=== PATIENT | male | born 1950 | race Caucasian/White ===

== ENCOUNTER 2020-09-19 13:19 | Emergency (ER) | payer MEDICARE, OTHER ==
[~2020-09-19] VITALS: Ht 175.3 cm; Wt 81.7 kg
[2020-09-19 14:38] LABS: BASOPHILS ABSOLUTE AUTO 0.02 K/mm3 (0.00-0.23); BASOPHILS PERCENT AUTO 0 % (0-2); EOSINOPHILS ABSOLUTE AUTO 0.14 K/mm3 (0.00-0.68); EOSINOPHILS PERCENT AUTO 2 % (0-6); Hemoglobin 13.6 g/dL (13.5-17.5); IMMATURE GRAN ABSOLUTE AUTO 0.05 K/mm3 (0.00-0.10); IMMATURE GRAN PERCENT AUTO 1 % (0-1); LYMPHOCYTES ABSOLUTE AUTO 0.63 K/mm3 (0.84-5.20); LYMPHOCYTES PERCENT AUTO 7 % (21-46); MONOCYTES ABSOLUTE AUTO 0.58 K/mm3 (0.16-1.47); MONOCYTES PERCENT AUTO 7 % (4-13); Mean Corpuscular HGB 29.8 pg (26.0-34.0); Mean Corpuscular HGB Conc 31.6 g/dL (31.5-36.5); Mean Corpuscular Volume 94 fL (80-100); Mean Platelet Volume 9.4 fL (9.1-12.4); NEUTROPHILS ABSOLUTE AUTO 7.26 K/mm3 (1.96-9.15); NEUTROPHILS PERCENT AUTO 84 % (41-73); Platelet Count 220 K/mm3 (150-400); RDW Coefficient Variation 13.6 % (11.7-14.2); RDW Standard Deviation 47.2 fL (35.1-46.3); Red Blood Cell Count 4.56 M/mm3 (4.30-5.90); White Blood Cell Count 8.68 K/mm3 (4.00-11.30)
[2020-09-19 14:56] LABS: Alanine Aminotransfer (ALT/SGP 15 U/L (12-78); Albumin, Blood 3.2 g/dL (3.4-5.0); Alk Phos 113 U/L (50-136); Anion Gap 2 mmol/L (6-16); Aspartate Aminotrans (AST/SGOT 10 U/L (12-37); Bilirubin, Total 0.5 mg/dL (0.1-1.0); Blood Urea Nitrogen 15 mg/dL (8-24); Bun/Creatinine Ratio 19.5 (12.0-20.0); CO2, Blood 32 mmol/L (21-32); Chloride, Blood 100 mmol/L (98-108); Creatinine, Blood 0.77 mg/dL (0.60-1.20); Globulin, Blood 3.3 g/dL (2.2-4.0); Glomerular Filtration Rate >60 (60-); Glucose, Blood 118 mg/dL (70-99); Potassium, Blood 4.3 mmol/L (3.5-5.5); Sodium, Blood 134 mmol/L (136-145); Total Protein, Blood 6.5 g/dL (6.4-8.2); Troponin I <0.015 ng/mL (0.000-0.040)
[2020-09-19 15:25] LABS: Source, Urine Catheter
[2020-09-19 15:28] LABS: Appearance, Urine Clear (Clear); Bilirubin, Urine Neg (Neg); Blood, Urine Neg (Neg); Color, Urine Yellow (P-Yellow); Glucose Qualitative, Urine Neg (Neg); Ketones, Urine 2+ (Neg); Leukocyte Esterase, Urine 1+ (Neg); Nitrite, Urine Neg (Neg); Protein, Urine Neg (Neg); Specific Gravity, Urine 1.015 (1.003-1.022); Urobilinogen, Urine 2+ (Normal); pH, Urine 6.5 (5.0-8.0)
[2020-09-19 15:35] LABS: Red Blood Cells, Urine 0-2 /hpf (0-2)
[2020-09-19 15:36] LABS: Bacteria Few /hpf; Squamous Epithelial Cells Rare /hpf (Few)
[2020-09-19] MEDS ORDERED: ASPI81CH PO (15:41)
[2020-09-19] MEDS ORDERED: ALBU2.5V5 INH (15:41)
[2020-09-19] MEDS ORDERED: BUPR100ER PO (15:42)
[2020-09-19] MEDS ORDERED: ATOR20 PO (15:42)
[2020-09-19] MEDS ORDERED: CARV3.125 PO (15:44)
[2020-09-19] MEDS ORDERED: CARBIDOPA-LEVO1 EA20 PO (15:44)
[2020-09-19] MEDS ORDERED: Flonase 0.05% N16 GM (15:44)
[2020-09-19] MEDS ORDERED: LITHOBID300 MG PO (15:45)
[2020-09-19] MEDS ORDERED: LEVSOD112 PO (15:45)
[2020-09-19] MEDS ORDERED: OMEP20ER PO (15:46)
[2020-09-19] MEDS ORDERED: MIRALAX17 GM PO (15:46)
[2020-09-19] MEDS ORDERED: SENN187 PO (15:47)
[2020-09-19] MEDS ORDERED: TRAZ100 PO (15:47)
[2020-09-19] MEDS ORDERED: ERGO400 PO (15:48)
[2020-09-19] MEDS ORDERED: Aspirin EC81 MG PO (17:35)
== END 2020-09-19 17:54 | disposition home or self-care (01) ==
LOC: ER 13:19
PROVIDERS: Emergency Medicine
DX: G45.9 Transient cerebral ischemic attack, unspecified (principal); F32.9 Major depressive disorder, single episode, unspecified; Z79.82 Long term (current) use of aspirin; Z79.899 Other long term (current) drug therapy
CPT/HCPCS: 70450; 80053; 81001; 84484; 85025; 87086; 93005; 93010; 99285-25

== ENCOUNTER 2020-09-28 19:53 | Observation (INO) | payer MEDICARE, OTHER ==
[~2020-09-28] VITALS: Ht 175.3 cm; Wt 86.0 kg
[~2020-09-28 19:53] MED LIST: ALBU2.5V5 INH; ASPI81CH PO; ATOR20 PO; Aspirin EC81 MG PO; BUPR100ER PO; CARBIDOPA-LEVO1 EA20 PO; CARV3.125 PO; ERGO400 PO; Flonase 0.05% N16 GM; LEVSOD112 PO; LITHOBID300 MG PO; MIRALAX17 GM PO; OMEP20ER PO; SENN187 PO; TRAZ100 PO
[2020-09-28] MEDS ORDERED: TAMS.4ER PO (20:24)
[2020-09-28] MEDS ORDERED: Prozac20 MG PO (20:24)
[2020-09-28 22:31] LABS: BASOPHILS ABSOLUTE AUTO 0.03 K/mm3 (0.00-0.23); BASOPHILS PERCENT AUTO 0 % (0-2); EOSINOPHILS ABSOLUTE AUTO 0.12 K/mm3 (0.00-0.68); EOSINOPHILS PERCENT AUTO 2 % (0-6); Hematocrit 40.3 % (37.0-53.0); Hemoglobin 12.6 g/dL (13.5-17.5); IMMATURE GRAN ABSOLUTE AUTO 0.05 K/mm3 (0.00-0.10); IMMATURE GRAN PERCENT AUTO 1 % (0-1); LYMPHOCYTES ABSOLUTE AUTO 0.91 K/mm3 (0.84-5.20); LYMPHOCYTES PERCENT AUTO 11 % (21-46); MONOCYTES ABSOLUTE AUTO 0.56 K/mm3 (0.16-1.47); MONOCYTES PERCENT AUTO 7 % (4-13); Mean Corpuscular HGB 29.7 pg (26.0-34.0); Mean Corpuscular HGB Conc 31.3 g/dL (31.5-36.5); Mean Corpuscular Volume 95 fL (80-100); Mean Platelet Volume 9.7 fL (9.1-12.4); NEUTROPHILS ABSOLUTE AUTO 6.55 K/mm3 (1.96-9.15); NEUTROPHILS PERCENT AUTO 80 % (41-73); Platelet Count 211 K/mm3 (150-400); RDW Coefficient Variation 13.5 % (11.7-14.2); RDW Standard Deviation 47.2 fL (35.1-46.3); Red Blood Cell Count 4.24 M/mm3 (4.30-5.90); White Blood Cell Count 8.22 K/mm3 (4.00-11.30)
[2020-09-28 22:49] LABS: Alanine Aminotransfer (ALT/SGP 7 U/L (12-78); Albumin/Globulin Ratio 0.9 (0.8-1.8); Alk Phos 105 U/L (50-136); Anion Gap 2 mmol/L (6-16); Aspartate Aminotrans (AST/SGOT 11 U/L (12-37); Bilirubin, Total 0.5 mg/dL (0.1-1.0); Blood Urea Nitrogen 14 mg/dL (8-24); Bun/Creatinine Ratio 17.7 (12.0-20.0); CO2, Blood 32 mmol/L (21-32); Calcium, Blood 8.8 mg/dL (8.5-10.1); Chloride, Blood 100 mmol/L (98-108); Creatinine, Blood 0.79 mg/dL (0.60-1.20); Ethanol (Alcohol), Blood, Med <3 mg/dL; Globulin, Blood 3.2 g/dL (2.2-4.0); Glomerular Filtration Rate >60 (60-); Glucose, Blood 94 mg/dL (70-99); Potassium, Blood 4.2 mmol/L (3.5-5.5); Salicylate <1.7 mg/dL (2.8-20.0); Sodium, Blood 134 mmol/L (136-145); Total Protein, Blood 6.2 g/dL (6.4-8.2)
[2020-09-28 22:51] LABS: Acetaminophen, Random <2.0 ug/mL (10.0-30.0)
[2020-09-29 02:23] LABS: Source, Urine Clean Catch
[2020-09-29 02:26] LABS: Bilirubin, Urine Neg (Neg); Blood, Urine Neg (Neg); Glucose Qualitative, Urine Neg (Neg); Ketones, Urine Neg (Neg); Leukocyte Esterase, Urine Neg (Neg); Nitrite, Urine Neg (Neg); Protein, Urine Neg (Neg); Urobilinogen, Urine NORM (Normal)
[2020-09-29 02:35] LABS: Appearance, Urine Clear (Clear); Color, Urine Yellow (P-Yellow)
[2020-09-29 03:00] LABS: U Amphetamine Screen Not Detected; U Barbituate Screen Not Detected; U Benzodiazapine Screen Not Detected; U Buprenorphine Screen Not Detected; U Cannabinoids Screen Not Detected; U Cocaine Screen Not Detected; U Methadone Screen Not Detected; U Methamphetamine Screen Not Detected; U Opiates Screen Not Detected; U Oxycodone Screen Not Detected; U Phencyclidine Screen Not Detected; U Propoxyphene Screen Not Detected
--- NOTE | 2020-09-29 04:00 | NUR ---
RECEIVED REPORT FROM [facility] RN. PT TRANSPORTED TO MEDICAL FLOOR VIA GURNEY, TRANSFERRED TO BED WITH ASSIST OF 1, TOLERATED WELL. VS TAKEN, WNL. NO OTHER ACUTE NEEDS ASSESSED AT THIS TIME. CALL LIGHT, POSSESSIONS IN REACH, BED IN LOW POSITION WITH ALARMS ON.
--- NOTE | 2020-09-29 04:40 | NUR ---
HOSPITALIST NOTIFIED OF PT'S CHANGE TO LOW SI RISK. ORDERS RECEIVED TO CONTINUE MODERATE SI PRECAUTIONS.
--- NOTE | 2020-09-29 06:06 | NUR ---
SHIFT SUMMARY PT ASLEEP, IN NAD. VS REVIEWED,WNL. NO ACUTE CHANGES NOTED SINCE ARRIVAL TO MEDICAL FLOOR, HAS BEEN PLEASANT AND COOPERATIVE WITH STAFF. CAMERA MONITORING VERIFIED WITH DEBRA VENEGAS IN REMOTE MONITORING. PT DENIES NEEDS AT THIS TIME. ENVIRONMENT FREE FROM HARMFUL OBJECTS. WILL CONTINUE TO PROVIDE CARE UNTIL REPORT GIVEN TO ONCOMING RN.
[2020-09-29 11:17] LABS: Lithium 0.91 mmol/L (0.60-1.20)
[2020-09-29] MEDS ORDERED: CARBIDOPA-LEVO1 EA20 PO (11:58)
[2020-09-29] MEDS ORDERED: Prozac20 MG PO (13:33)
[2020-09-29] MEDS ORDERED: VITAMIN D325 MC3 PO (13:35)
[2020-09-29] MEDS ORDERED: PROBIOTIC1 EA13 PO (13:36)
[2020-09-29] MEDS ORDERED: ALBUTEROL SULFATE INH (13:44)
--- NOTE | 2020-09-29 17:26 | NUR ---
pt transfered from 346 to 327, moved belongings to [facility] in along with phone and marketing rotation associate onto his bedside cabnet, called enrique for consult, he stated he would be in on Thursday and to send a face sheet down to the er, acc said she would print out new facesheets and labels and send a copy to the er, pt was quite excited when he could not find his phone marketing rotation associate but calmed back down when it was found in his belongings, will continue to monitor and treat until share bsr with noc nurse and pt
--- NOTE | 2020-09-29 17:35 | NUR ---
PT TRANSFERED TO ROOM 327. PT HAS BEEN SLEEPING A LOT TODAY. PT HAS BEEN QUIET AND COOPERATIVE. PT IS GOOD ABOUT HAVING SOMEONE IN ROOM TO USE RESTROOM. SI WAS DC'D BY DR ABREU. REPORT WAS GIVEN TO PORTIA NAVA. PT TAKEN OVER IN BED AND PERSONAL BELONINGS TRANSFERED TO NEW ROOM. PT SETTLED IN AND CALL LIGHT WITHIN REACH WITH BED ALARM SET.
--- NOTE | 2020-09-29 18:26 | NUR ---
a+o, when first moved over stated he had no suicide ideation but when questioned later he stated he might have thought about it some, call light in reach, able to stand but erika, no IV, 2L via nc, will continue to monitor and treat until share bsr with noc tegan rn and pt
--- NOTE | 2020-09-30 04:02 | NUR ---
SHIFT SUMMARY ALERT, ABLE TO MAKE NEEDS KNOWN. COOPERATIVE WITH CARE. CALLS AND ANSWERS QUESTIONS APPROPRIATELY. NO C/O PAIN/DISCOMFORT. 1P SBA TO BATHROOM. APPEARED TO REST MUCH OF THE NIGHT. REMAINS ON 2L VIA WITH CPAP @ HS WITH 2L BLEED. CONT BIOX REMAINED IN PLACE. NO ACUTE CHANGES NOTED OVERNIGHT. BED IN LOWEST POSITION. CALL LIGHT AND BELONGINGS WITHIN REACH. CONTINUE WITH CURRENT PLAN OF CARE. REPORT TO ONCOMING RN.
--- NOTE | 2020-09-30 10:42 | NUR ---
CALL BACK TO [facility], SPOKE TO MYRNA ([facility] STAFF), SHE REPORTED THAT PT IS NOT BE DISCHARGED BEFORE [facility] ADMIN IS ABLE TO REEVALUATE PATIENT ON THURSDAY. NOTIFIED DR. ROCHA VIA PHONE CALL. NO FURTHER ORDERS NOTED. CHARGE NURSE CURRY ALSO NOTIFIED OF THE ABOVE.
--- NOTE | 2020-09-30 16:27 | NUR ---
SHIFT SUMMARY PT A&OX3, ABLE TO MAKE NEEDS KNOWN. PLEASANT AND COOPERATIVE TO CARE. NO C/O PAIN THIS SHIFT. DENIES CP / SOB. PT MEDICATED FOR NAUSEA AND INDIGESTION PER EMAR, PT REPORTED TX HAS BEEN EFFECTIVE. PT ON 2LPM O2 VIA NC, ON CONT BIOX SATS >92%. PT DENIES ANY SUICIDAL IDEATIONS THIS SHIFT, DENIES FEELINGS OF ANXIETY OR DEPRESSION. PT CALM AND COMFORTABLE IN ROOM T/O SHIFT. PT REQUIRES 1P ASSIST WHEN AMBULATING TO BATHROOM D/T SHUFFLING GAIT, WEAKNESS, AND SOB W/ EXERTION. BED AT LOWEST POSITION, W/ ALARM ON, CALL LIGHT WITHIN REACH.
--- NOTE | 2020-10-01 03:52 | NUR ---
SHIFT SUMMARY A/O, ABLE TO MAKE NEEDS KNOWN. COOPERATIVE WITH CARE. CALLS AND ANSWERS QUESTIONS APPROPRIATELY. NO C/O PAIN/DISCOMFORT. APPEARED TO REST MUCH OF THE NIGHT AND UTILIZED CPAP @ HS /c 2L O2 BLEED. NO ACUTE CHANGES NOTED OVERNIGHT. BED REMAINED IN LOWEST POSITION. CALL LIGHT AND BELONGINGS WITHIN REACH. CONTINUE WITH CURRENT PLAN OF CARE. REPORT TO ONCOMING RN.
[2020-10-01 04:53] LABS: Hematocrit 39.2 % (37.0-53.0); Mean Corpuscular HGB 29.6 pg (26.0-34.0); Mean Corpuscular HGB Conc 30.6 g/dL (31.5-36.5); Mean Corpuscular Volume 97 fL (80-100); Mean Platelet Volume 9.6 fL (9.1-12.4); Platelet Count 185 K/mm3 (150-400); RDW Coefficient Variation 13.5 % (11.7-14.2); RDW Standard Deviation 48.4 fL (35.1-46.3); Red Blood Cell Count 4.06 M/mm3 (4.30-5.90); White Blood Cell Count 7.61 K/mm3 (4.00-11.30)
[2020-10-01 05:24] LABS: Anion Gap -1 mmol/L (6-16); Blood Urea Nitrogen 17 mg/dL (8-24); Bun/Creatinine Ratio 21.1 (12.0-20.0); CO2, Blood 34 mmol/L (21-32); Calcium, Blood 8.5 mg/dL (8.5-10.1); Chloride, Blood 102 mmol/L (98-108); Creatinine, Blood 0.81 mg/dL (0.60-1.20); Glomerular Filtration Rate >60 (60-); Glucose, Blood 99 mg/dL (70-99); Magnesium, Blood 2.2 mg/dL (1.6-2.4); Potassium, Blood 4.2 mmol/L (3.5-5.5); Sodium, Blood 135 mmol/L (136-145)
--- NOTE | 2020-10-01 16:55 | NUR ---
SHIFT SUMMARY PT A&OX3, ABLE TO MAKE NEEDS KNOWN, PLEASANT AND COOPERATIVE TO CARE. NO C/O PAIN OR ANY DISCOMFORT. NO ACUTE CHANGES NOTED TO PT THIS SHIFT. DENIES SUICIDAL IDEATIONS, DENIES FEELINGS OF INCREASE ANXIETY OR DEPRESSION. CALM AND COMFORTABLE IN ROOM T/O SHIFT. PT REQUIRES 1P SBA TO BATHROOM. RESTING TREMORS NOTED TO BUE, SHUFFLING GAIT NOTED WHEN AMBULATING. BED AT LOWEST POSITION. CALL LIGHT WITHIN REACH.
--- NOTE | 2020-10-02 05:57 | NUR ---
SHIFT SUMMARY AOX3. VSS. WORE CPAP T/O NIGHT. TREMORS TO BUE-HX PARKINSONS. DENIES PAIN, N/V OR SOB. DR GLASER IN LAST NIGHT TO SEE PT, INCREASED HS TRAZADONE DOSE. PT DENIES SI THOUGHTS OR PLANS, REPORTS HE STILL FEELS STRESSED ABOUT HIS OHP PAPERWORK. CALL LIGHT IN REACH & PT ABLE TO MAKE NEEDS KNOWN.
--- NOTE | 2020-10-02 14:16 | NUR ---
SHERIN CALLED FROM [facility] THEY WILL COME AND EVALUATE PT SOMETIME TOMORROW TO SEE IF HE CAN RETURN TO [facility]
--- NOTE | 2020-10-02 16:10 | NUR ---
SHIFT SUMMARY PT AxOx4. PLEASANT AND COOPERATIVE WITH CARE. [place], BUT CALLS APPROPRIATELY FOR CARE. PT BREATHING WITHOUT DIFFICULTY ON 2L O2 VIA NC. PT DENIES ANY SI. PT. VITALS REVIEWED. CURRENT PLAN IS TO DC TOMORROW PENDING REASSESSMENT BY [facility]. PT CURRENTLY RESTING IN BED WITH CALL LIGHT IN REACH. DENIES ANY NEEDS AT THIS TIME.
--- NOTE | 2020-10-02 18:40 | NUR ---
Spiritual care note: I was tasked to meet with Mr. Cheung to offer education about advanced care planning. As he is hospitalized for SI, this did not appear to be an appropriate time for this discussion. He has a sister, but no support locally. He recently moved her from [facility] to go into foster care. He admits to feeling lonely and appeared to enjoy conversation, gentle staff counsel, and encouragement. I left an advanced directive packet on bedside table. I will remain available.
--- NOTE | 2020-10-03 05:04 | NUR ---
SHIFT SUMMARY NO ACUTE CHANGES THIS SHIFT. AOX3. VSS. SPO2 >90% ON 2L O2, BASELINE. DENIES PAIN, N/V OR SOB. INCONT/CONT OF URINE, CHANGED PRN. FRANCISCO KNOWLES CALLED FROM [facility] FOR AN UPDATE ON PT. INFORMED HER PTS MEDS WHERE ADJUSTED PER DR GLASER & PT WAS MEDICALLY STABLE AWAITING DC PER [facility] ASSESSMENT, FRANCISCO KNOWLES STATED SHE WOULD INFORM HER SUPERVISORS. CALL LIGHT IN REACH & I WCTM.
--- NOTE | 2020-10-03 16:40 | NUR ---
SHIFT SUMMARY PT AxOx4. PLEASANT AND COOPERATIVE WITH CARE. PT HAD IN PERSON ASSESSMENT FROM [facility], AND WAS ACCEPTED TO COME BACK TO LIVE IN THEIR FACILITY. CURRENT PLAN IS TO DC TOMORROW TO [facility] NO[facility]. DR RAMIREZUFF IN TO VISIT TODAY- HE ORDERED LITHIUM LEVEL LABS TOMORROW AM, AND AGREED PATIENT IS SAFE FOR DC. PT DENIES ANY SI THIS SHIFT. VITALS REVIEWED. PT HAS TRENDED HYPOTENSIVE. PT CURRENTING RESTING IN BED WITH CALL LIGHT IN REACH. DENIES ANY NEEDS AT THIS TIME.
--- NOTE | 2020-10-04 06:28 | NUR ---
SHIFT SUMMARY A/O, ABLE TO MAKE NEEDS KNOWN. COOPERATIVE WITH CARE. ANSWERS QUESTIONS APPROPRIATELY. NO C/O PAIN/DISCOMFORT. APPEARED TO REST MUCH OF THE NIGHT. VERY EAGER TO RETURN TO HIS HOME TODAY. VSS/AFEBRILE. SBA TO BATHROOM R/T HX OF PARKINSONS. NO ACUTE CHANGES NOTED OVERNIGHT. BED REMAINED IN LOWEST POSITION. CALL LIGHT AND BELONGINGS WITHIN REACH. CONTINUE WITH CURRENT PLAN OF CARE. REPORT TO ONCOMING RN.
[2020-10-04 07:49] LABS: Lithium 0.85 mmol/L (0.60-1.20)
[2020-10-04] MEDS ORDERED: Acetaminophen325 M1 PO (10:18)
--- NOTE | 2020-10-04 11:48 | NUR ---
DISCHARGE SUMMARY PT DISCHARGED @ APPROX 1140 VIA WHEELCHAIR BY [facility]. PT IS RETURNING TO [facility], CALL MADE TO INFORM STAFF OF PT RETURN. DISCHARGE PAPERWORK REVIEWED, WELL SAFETY PLAN. PT HAS NO SUICIDAL INTENTIONS AT TIME OF DISCHARGE. NO IV SITE TO BE REMOVED @ THIS TIME. PT STATES HE HAS ALL OF HIS BELONGINGS. NEEDED RX FAXED TO PREFERRED PHARMACY.
== END 2020-10-04 11:43 | disposition home or self-care (01) ==
LOC: ER 19:53 → MEDS 19:54 → EOR 09-29 00:48 → ER 09-29 00:48 → EOR 09-29 00:48 → MEDS 09-29 02:40 → ER 09-29 02:40 → MEDS 09-29 03:57 → ENPENDDIS 10-02 15:03 → MEDS 10-04 11:43
PROVIDERS: Emergency Medicine; Family Medicine; Psychiatry & Neurology Psychiatry; ADMIT Internal Medicine
DX: F31.30 Bipolar disorder, current episode depressed, mild or moderate severity, unspecified (principal); G20 Parkinson's disease; J44.9 Chronic obstructive pulmonary disease, unspecified; E03.9 Hypothyroidism, unspecified; K21.9 Gastro-esophageal reflux disease without esophagitis; I10 Essential (primary) hypertension; E78.5 Hyperlipidemia, unspecified; F17.210 Nicotine dependence, cigarettes, uncomplicated; G47.33 Obstructive sleep apnea (adult) (pediatric); N40.0 Benign prostatic hyperplasia without lower urinary tract symptoms; J96.11 Chronic respiratory failure with hypoxia; Z79.82 Long term (current) use of aspirin; Z91.5 Personal history of self-harm; Z99.81 Dependence on supplemental oxygen; Z86.73 Personal history of transient ischemic attack (TIA), and cerebral infarction without residual deficits
CPT/HCPCS: 36415; 80048; 80053; 80178; 81003; 83735; 84443; 85025; 85027; 94660; 94760; 94762; 96372; 99285-25; A9270; G0378; G0480; J1650; Q3014

== ENCOUNTER 2020-10-22 11:50 | Emergency (ER) | payer MEDICARE, OTHER ==
[~2020-10-22] VITALS: Ht 175.3 cm; Wt 90.7 kg
[~2020-10-22 11:50] MED LIST changes: +ALBUTEROL SULFATE INH; +Acetaminophen325 M1 PO; +PROBIOTIC1 EA13 PO; +Prozac20 MG PO; +TAMS.4ER PO; +VITAMIN D325 MC3 PO
[2020-10-22 12:20] LABS: BASOPHILS ABSOLUTE AUTO 0.02 K/mm3 (0.00-0.23); BASOPHILS PERCENT AUTO 0 % (0-2); EOSINOPHILS ABSOLUTE AUTO 0.11 K/mm3 (0.00-0.68); EOSINOPHILS PERCENT AUTO 1 % (0-6); Hematocrit 43.3 % (37.0-53.0); Hemoglobin 13.4 g/dL (13.5-17.5); IMMATURE GRAN ABSOLUTE AUTO 0.08 K/mm3 (0.00-0.10); IMMATURE GRAN PERCENT AUTO 1 % (0-1); LYMPHOCYTES ABSOLUTE AUTO 0.72 K/mm3 (0.84-5.20); LYMPHOCYTES PERCENT AUTO 7 % (21-46); MONOCYTES ABSOLUTE AUTO 0.52 K/mm3 (0.16-1.47); MONOCYTES PERCENT AUTO 5 % (4-13); Mean Corpuscular HGB 29.3 pg (26.0-34.0); Mean Corpuscular HGB Conc 30.9 g/dL (31.5-36.5); Mean Corpuscular Volume 95 fL (80-100); Mean Platelet Volume 9.5 fL (9.1-12.4); NEUTROPHILS ABSOLUTE AUTO 8.23 K/mm3 (1.96-9.15); NEUTROPHILS PERCENT AUTO 85 % (41-73); Platelet Count 232 K/mm3 (150-400); RDW Coefficient Variation 12.7 % (11.7-14.2); RDW Standard Deviation 44.8 fL (35.1-46.3); Red Blood Cell Count 4.58 M/mm3 (4.30-5.90); White Blood Cell Count 9.68 K/mm3 (4.00-11.30)
[2020-10-22 12:40] LABS: Alanine Aminotransfer (ALT/SGP 10 U/L (12-78); Albumin, Blood 3.2 g/dL (3.4-5.0); Albumin/Globulin Ratio 0.9 (0.8-1.8); Alk Phos 123 U/L (50-136); Anion Gap 6 mmol/L (6-16); Aspartate Aminotrans (AST/SGOT 9 U/L (12-37); Bilirubin, Total 0.8 mg/dL (0.1-1.0); Blood Urea Nitrogen 24 mg/dL (8-24); CO2, Blood 26 mmol/L (21-32); Calcium, Blood 9.4 mg/dL (8.5-10.1); Chloride, Blood 102 mmol/L (98-108); Creatinine, Blood 0.96 mg/dL (0.60-1.20); Globulin, Blood 3.4 g/dL (2.2-4.0); Glomerular Filtration Rate >60 (60-); Glucose, Blood 78 mg/dL (70-99); Potassium, Blood 4.3 mmol/L (3.5-5.5); Sodium, Blood 134 mmol/L (136-145); Total Protein, Blood 6.6 g/dL (6.4-8.2); Troponin I <0.015 ng/mL (0.000-0.040)
[2020-10-22] MEDS ORDERED: Acetaminophen325 M1 PO (12:56)
[2020-10-22] MEDS ORDERED: ONDA4ODT MM (12:56)
[2020-10-22 14:04] LABS: Lithium 1.49 mmol/L (0.60-1.20)
== END 2020-10-22 17:34 | disposition home or self-care (01) ==
LOC: ER 11:50
PROVIDERS: Emergency Medicine
DX: R55 Syncope and collapse (principal); Z79.899 Other long term (current) drug therapy
CPT/HCPCS: 36415; 71046; 80053; 80178; 83880; 84484; 85025; 93005; 93010; 99284-25

== ENCOUNTER 2020-10-30 09:36 | Observation (INO) | payer MEDICARE, OTHER ==
[~2020-10-30] VITALS: Ht 175.3 cm; Wt 79.2 kg
[~2020-10-30 09:36] MED LIST changes: +ONDA4ODT MM
[2020-10-30 10:35] LABS: BASOPHILS ABSOLUTE AUTO 0.03 K/mm3 (0.00-0.23); BASOPHILS PERCENT AUTO 0 % (0-2); EOSINOPHILS ABSOLUTE AUTO 0.14 K/mm3 (0.00-0.68); EOSINOPHILS PERCENT AUTO 1 % (0-6); Hematocrit 44.5 % (37.0-53.0); Hemoglobin 13.9 g/dL (13.5-17.5); IMMATURE GRAN ABSOLUTE AUTO 0.09 K/mm3 (0.00-0.10); IMMATURE GRAN PERCENT AUTO 1 % (0-1); LYMPHOCYTES ABSOLUTE AUTO 1.08 K/mm3 (0.84-5.20); LYMPHOCYTES PERCENT AUTO 11 % (21-46); MONOCYTES ABSOLUTE AUTO 0.63 K/mm3 (0.16-1.47); MONOCYTES PERCENT AUTO 6 % (4-13); Mean Corpuscular HGB Conc 31.2 g/dL (31.5-36.5); Mean Corpuscular Volume 93 fL (80-100); Mean Platelet Volume 10.5 fL (9.1-12.4); NEUTROPHILS ABSOLUTE AUTO 8.22 K/mm3 (1.96-9.15); NEUTROPHILS PERCENT AUTO 81 % (41-73); Platelet Count 236 K/mm3 (150-400); RDW Coefficient Variation 12.3 % (11.7-14.2); RDW Standard Deviation 42.5 fL (35.1-46.3); Red Blood Cell Count 4.79 M/mm3 (4.30-5.90); White Blood Cell Count 10.19 K/mm3 (4.00-11.30)
[2020-10-30 10:45] LABS: Alanine Aminotransfer (ALT/SGP 10 U/L (12-78); Albumin/Globulin Ratio 0.9 (0.8-1.8); Alk Phos 134 U/L (50-136); Anion Gap 7 mmol/L (6-16); Aspartate Aminotrans (AST/SGOT 14 U/L (12-37); Bilirubin, Total 0.5 mg/dL (0.1-1.0); Blood Urea Nitrogen 21 mg/dL (8-24); Bun/Creatinine Ratio 27.9 (12.0-20.0); CO2, Blood 30 mmol/L (21-32); Calcium, Blood 9.4 mg/dL (8.5-10.1); Chloride, Blood 96 mmol/L (98-108); Creatinine, Blood 0.75 mg/dL (0.60-1.20); Globulin, Blood 3.3 g/dL (2.2-4.0); Glomerular Filtration Rate >60 (60-); Glucose, Blood 85 mg/dL (70-99); Potassium, Blood 3.9 mmol/L (3.5-5.5); Sodium, Blood 133 mmol/L (136-145); Total Protein, Blood 6.3 g/dL (6.4-8.2)
[2020-10-30 12:02] LABS: Lithium 1.61 mmol/L (0.60-1.20)
[2020-10-30] MEDS ORDERED: Aspir 8181 MG PO (12:49)
[2020-10-30] MEDS ORDERED: BUPROPION HCL200 M1 PO (12:50)
[2020-10-30 14:41] LABS: Lithium 1.39 mmol/L (0.60-1.20)
--- NOTE | 2020-10-30 18:34 | NUR ---
[facility] CALLED PHARMACY. REQUESTED MED. WILL GIVE 1800 DOSE WHEN RECEIVE. NOT ADMIN THE 1400 DOSE.
--- NOTE | 2020-10-30 18:35 | NUR ---
PT ADMITTD TO ROOM. HISTORY NOT COMPLETED. PT A/O X3 PLEASANT AND TALKATIVE. STATES LIVES [facility]. STATES IS OCC INCONT. PT WAS UNCLEAN UPON ARRIVAL TO FLOOR. BED BATH ADMIN. OLD STOOL ON BOTTOM. ORAL CAVITY FILLED WITH MUCOUS. SWAB MOUTH AND SUCTIONED TO KEEP FROM SWALLOWING. NO TEETH IN PT. STATES ARE AT HOME. H/R VERY DISTANT. NO TELE. LUNGS CLEAR T/O. RESP EASY, UNLABORED. ON 2L NOW AND AT BASELINE. PT STATES USES CPAP AT NITE. CALLED RT FOR ASSISTANCE. B/T HYPO. STATES LAST BM 2-3 DAYS, HOWEVER, DRIED STOOL ON BOTTOM NOTED ABOVE. VIODS INCONT AT TIMES. CLEANED AND PLACED IN ATTENDS. PT STATES SOMEONE ASSISTS HIM UP AT MORNING. THEN, HE USES WALKER TO MOVE ABOUT HOUSE CHOOSES. BED IN LOW POSITION, CALL LITE IN REACH, BED ALARM ON FOR SAFETY
[2020-10-30 20:45] LABS: Lithium 1.19 mmol/L (0.60-1.20)
--- NOTE | 2020-10-30 23:07 | NUR ---
EARLIER, I SPOKE WITH "VIOLETTE" AT [facility]. UPDATED ON LEVEL OF LITHIUM. HE BETH THEY WOULD CALL BACK TOMORROW FOR ANOTHER UPDATE. PT RESTING QUIETLY WITH CPCP. CALL LIGHT IN REACH.
--- NOTE | 2020-10-31 03:09 | NUR ---
OVEN BUILDER SUMMARY HAS BEEN RESTING WITH FEW COMPLAINTS SINCE HS. O2 PER NC AND HOB ELEVATED FOR COMFORT. CPAC ON AT NIGHT. HAD NAUSEA X 1 AND RECEIVED ZOFRAN FOR IT, MED WAS EFFECTIVE. IVF OF NS CONTINUES AT 200 ML/HR TO HELP FLUSH OUT LITHIUM. RESULTS FROM LEVEL DRAWN EARLIER: 139, DOWN FORM 1.61 BEFORE THAT. ALERT AND ORIENTED TO QUESTIONS ASKED. "VIOLETTE" CALLED FROM [facility] FOR AN UPDATE. CURRENTLY RESTING QUIETLY. CALL LIGHT IN REACH.
[2020-10-31 06:30] LABS: BASOPHILS ABSOLUTE AUTO 0.04 K/mm3 (0.00-0.23); BASOPHILS PERCENT AUTO 1 % (0-2); EOSINOPHILS ABSOLUTE AUTO 0.15 K/mm3 (0.00-0.68); EOSINOPHILS PERCENT AUTO 2 % (0-6); Hematocrit 40.1 % (37.0-53.0); Hemoglobin 12.5 g/dL (13.5-17.5); IMMATURE GRAN ABSOLUTE AUTO 0.08 K/mm3 (0.00-0.10); IMMATURE GRAN PERCENT AUTO 1 % (0-1); LYMPHOCYTES PERCENT AUTO 11 % (21-46); MONOCYTES PERCENT AUTO 7 % (4-13); Mean Corpuscular HGB 29.4 pg (26.0-34.0); Mean Corpuscular HGB Conc 31.2 g/dL (31.5-36.5); Mean Corpuscular Volume 94 fL (80-100); Mean Platelet Volume 10.7 fL (9.1-12.4); NEUTROPHILS ABSOLUTE AUTO 6.89 K/mm3 (1.96-9.15); NEUTROPHILS PERCENT AUTO 79 % (41-73); Platelet Count 190 K/mm3 (150-400); RDW Coefficient Variation 12.7 % (11.7-14.2); RDW Standard Deviation 43.5 fL (35.1-46.3); Red Blood Cell Count 4.25 M/mm3 (4.30-5.90); White Blood Cell Count 8.76 K/mm3 (4.00-11.30)
[2020-10-31 06:47] LABS: Alanine Aminotransfer (ALT/SGP 9 U/L (12-78); Albumin, Blood 2.5 g/dL (3.4-5.0); Albumin/Globulin Ratio 0.9 (0.8-1.8); Alk Phos 121 U/L (50-136); Anion Gap 6 mmol/L (6-16); Aspartate Aminotrans (AST/SGOT 9 U/L (12-37); Bilirubin, Total 0.4 mg/dL (0.1-1.0); Blood Urea Nitrogen 13 mg/dL (8-24); Bun/Creatinine Ratio 22.4 (12.0-20.0); CO2, Blood 27 mmol/L (21-32); Calcium, Blood 8.6 mg/dL (8.5-10.1); Chloride, Blood 104 mmol/L (98-108); Creatinine, Blood 0.58 mg/dL (0.60-1.20); Globulin, Blood 2.9 g/dL (2.2-4.0); Glomerular Filtration Rate >60 (60-); Glucose, Blood 79 mg/dL (70-99); Potassium, Blood 3.7 mmol/L (3.5-5.5); Sodium, Blood 137 mmol/L (136-145); Total Protein, Blood 5.4 g/dL (6.4-8.2)
[2020-10-31 06:53] LABS: Lithium 0.92 mmol/L (0.60-1.20)
[2020-10-31 07:59] LABS: Adenovirus F 40/41 Not Detected (NOT DETECT); Astrovirus Not Detected (NOT DETECT); Campylobacter Sp Not Detected (NOT DETECT); Cryptosporidium Not Detected (NOT DETECT); Cyclospora Cayetanensis Not Detected (NOT DETECT); E. Coli O157 Not Detected (NOT DETECT); Entamoeba Histolytica Not Detected (NOT DETECT); Enteroaggregative E. coli-EAEC Not Detected (NOT DETECT); Enteropathogenic E. coli-EPEC Not Detected (NOT DETECT); Enterotoxigenic E. coli-ETEC Not Detected (NOT DETECT); Giardia Lamblia Not Detected (NOT DETECT); Norovirus GI/GII Not Detected (NOT DETECT); Plesiomonas Shigelloides Not Detected (NOT DETECT); Rotavirus A Not Detected (NOT DETECT); Salmonella Sp Not Detected (NOT DETECT); Sapovirus Not Detected (NOT DETECT); Shiga Toxin-prod E. coli-STEC Not Detected (NOT DETECT); Shigella/Enteroin E. coli-EIEC Not Detected (NOT DETECT); Vibrio Cholerae Not Detected (NOT DETECT); Vibrio Sp Not Detected (NOT DETECT); Yersinia Enterocolitica Not Detected (NOT DETECT)
--- NOTE | 2020-10-31 19:24 | NUR ---
SHIFT SUMMARY PT RESTING QUIETLY AT START OF SHIFT. WOKE EASILY FOR SHIFT REPORT. PLEASANT AND CO-OP. OCCASSIONAL N/V THRU OUT THE DAY. PT REPORTED FROM LITHIUM TOXICITY, BUT LEVELS NOW WNL'S SINCE YESTERDAY. PT HAS BEEN EATING BETTER EACH MEAL TODAY. ABLE TO FEED HIMSELF WELL. MEDS ADMIN IN PUDDING PER PT REQUEST; TOLERATES W/O DIFFICULTY THAT WAY. CAN SWALLOW SM ONES WITH WATER OK. PT UP TO CHAIR SEVERAL TIMES THIS SHIFT AND ABLE TO AMBULATE TO BTHRM NEEDED AND TO SHOWER THIS AM. ABLE TO WORK WITH PT/OT. PT FROM [facility]. ABLE TO MAKE NEEDS KNOWN. CALL LT IN REACH.
[2020-11-01 05:43] LABS: Anion Gap 5 mmol/L (6-16); Blood Urea Nitrogen 6 mg/dL (8-24); CO2, Blood 27 mmol/L (21-32); Calcium, Blood 8.2 mg/dL (8.5-10.1); Chloride, Blood 107 mmol/L (98-108); Glomerular Filtration Rate >60 (60-); Glucose, Blood 132 mg/dL (70-99); Potassium, Blood 3.5 mmol/L (3.5-5.5); Sodium, Blood 139 mmol/L (136-145)
--- NOTE | 2020-11-01 08:18 | NUR ---
SHIFT SUMMARY: PATIENT IS A&OX3, VAGUE ON DATE. VSS, REPORTING NAUSEA AND WAS MEDICATED PER MAR WITH GOOD EFFECT X1. IVF ARE INFUSING AT 200 MLS/HR PER MD ORDER. NO ACUTE CHANGES.
--- NOTE | 2020-11-01 10:42 | NUR ---
REPORT TO SHERIN AT [facility]. [facility] THAT PATIENT NEEDS TO BE REEVALUATED BEFORE D'C.
--- NOTE | 2020-11-01 15:56 | NUR ---
NOTIFIED IV FLUIDS STILL AT 200ML/HR. BLD PRESS. WAS A LITTLE LOW THIS A.M SYSTOLIC 96 NOW 100. RESPIRATIONS UP 24. D'C IV FLUIDS. WCTM
--- NOTE | 2020-11-01 19:17 | NUR ---
ALERT. ORIENTED. PLEASANT. COOPERATIVE. ONE PERSON ASSIST TO BATHROOM. USES CALL LIGHT APPROPRIATELY. RESPIRATIONS LITTLE ELEVATED WITH DR. GELACIO GALAN. [facility]
--- NOTE | 2020-11-02 03:02 | NUR ---
SHIFT SUMMARY PATIENT HAD NO ACUTE CHANGES OBSERVED. AXOX 3 AND ONE ASSIST TO BR. USES URINAL AT BEDSIDE. ON 2L O2 NC. PIV REMAINS INTACT. DENIES PAIN, SOB, AND N/V. VSS/AFEBRILE. TAKES MEDICATION WHOLE WITH PUDDING A FEW AT A TIME. COOPERATIVE WITH CARE. CALL LIGHT IN REACH. BED IN LOWEST POSITION AND ALARM ACTIVATED. WILL CONTINUE TO MONITOR UNTIL DAY SHIFT NURSE ASSUMES CARE.
[2020-11-02 10:18] LABS: Lithium 0.51 mmol/L (0.60-1.20)
[2020-11-02] MEDS ORDERED: Lithium Carbon450 MG PO (12:40)
[2020-11-02] MEDS ORDERED: ONDA4ODT MM (12:41)
--- NOTE | 2020-11-02 13:23 | NUR ---
DISCHARGE INSTUCTIONS EXPLAINED TO PATIENT. ALL QUESTIONS ANSWERED. IV REMOVED. PATIENT TO DISCHARGE BY W/C ANNAMARIE NOE AT APPROX 1330.
--- NOTE | 2020-11-02 14:06 | NUR ---
PATIENT WAS PICKED UP BY Massimo DE LUNA AT 1359 AND DISCHARGED HOME TO [facility].
== END 2020-11-02 14:00 | disposition home or self-care (01) ==
LOC: ER 09:36 → ERHOLD 09:37 → MEDS 17:02
PROVIDERS: Emergency Medicine; Family Medicine; Internal Medicine; Nurse Practitioner Acute Care; ADMIT Internal Medicine
DX: T43.591A Poisoning by other antipsychotics and neuroleptics, accidental (unintentional), initial encounter (principal); R11.2 Nausea with vomiting, unspecified; E86.0 Dehydration; F31.9 Bipolar disorder, unspecified; E03.9 Hypothyroidism, unspecified; G20 Parkinson's disease; J44.9 Chronic obstructive pulmonary disease, unspecified; I25.10 Atherosclerotic heart disease of native coronary artery without angina pectoris; K21.9 Gastro-esophageal reflux disease without esophagitis; I10 Essential (primary) hypertension; E78.00 Pure hypercholesterolemia, unspecified; F17.210 Nicotine dependence, cigarettes, uncomplicated; N40.0 Benign prostatic hyperplasia without lower urinary tract symptoms; G47.33 Obstructive sleep apnea (adult) (pediatric); Z91.5 Personal history of self-harm
CPT/HCPCS: 0097U; 36415; 80048; 80053; 80178; 83735; 84443; 85025; 93005; 93010; 94660; 94762; 96360; 96361; 96372; 96374; 96376; 97116; 97163; 97166; 97530; 97530-CO; 97535-CO; 99285-25; A9270; G0378; G0480; J1650; J2405; J7030

== ENCOUNTER → 2020-11-08 | Outpatient (CLI) | payer MEDICARE, OTHER ==
[~2020-11-08] MED LIST changes: +Aspir 8181 MG PO; +BUPROPION HCL200 M1 PO; +Lithium Carbon450 MG PO
[2020-11-08 17:14] LABS: Lithium 0.88 mmol/L (0.60-1.20)
== END | disposition home or self-care (01) ==
LOC: LAB 16:16 → LAB SHORT 16:16
PROVIDERS: Nurse Practitioner
DX: F31.32 Bipolar disorder, current episode depressed, moderate (principal)
CPT/HCPCS: 80178

== ENCOUNTER 2020-12-03 19:40 | Observation (INO) | payer MEDICARE, OTHER ==
[~2020-12-03] VITALS: Ht 175.3 cm; Wt 90.7 kg
[2020-12-03 20:29] LABS: BASOPHILS ABSOLUTE AUTO 0.04 K/mm3 (0.00-0.23); BASOPHILS PERCENT AUTO 1 % (0-2); EOSINOPHILS ABSOLUTE AUTO 0.15 K/mm3 (0.00-0.68); EOSINOPHILS PERCENT AUTO 2 % (0-6); Hematocrit 41.6 % (37.0-53.0); Hemoglobin 12.8 g/dL (13.5-17.5); IMMATURE GRAN ABSOLUTE AUTO 0.06 K/mm3 (0.00-0.10); IMMATURE GRAN PERCENT AUTO 1 % (0-1); LYMPHOCYTES ABSOLUTE AUTO 1.16 K/mm3 (0.84-5.20); LYMPHOCYTES PERCENT AUTO 15 % (21-46); MONOCYTES PERCENT AUTO 8 % (4-13); Mean Corpuscular HGB 28.7 pg (26.0-34.0); Mean Corpuscular HGB Conc 30.8 g/dL (31.5-36.5); Mean Corpuscular Volume 93 fL (80-100); Mean Platelet Volume 9.6 fL (9.1-12.4); NEUTROPHILS ABSOLUTE AUTO 5.65 K/mm3 (1.96-9.15); NEUTROPHILS PERCENT AUTO 74 % (41-73); Platelet Count 251 K/mm3 (150-400); RDW Coefficient Variation 13.2 % (11.7-14.2); RDW Standard Deviation 45.1 fL (35.1-46.3); Red Blood Cell Count 4.46 M/mm3 (4.30-5.90); White Blood Cell Count 7.66 K/mm3 (4.00-11.30)
[2020-12-03 20:45] LABS: Alanine Aminotransfer (ALT/SGP 17 U/L (12-78); Albumin, Blood 2.9 g/dL (3.4-5.0); Albumin/Globulin Ratio 0.8 (0.8-1.8); Alk Phos 106 U/L (50-136); Anion Gap 3 mmol/L (6-16); Aspartate Aminotrans (AST/SGOT 25 U/L (12-37); Bilirubin, Total 0.4 mg/dL (0.1-1.0); Blood Urea Nitrogen 17 mg/dL (8-24); Bun/Creatinine Ratio 22.1 (12.0-20.0); CO2, Blood 28 mmol/L (21-32); Calcium, Blood 8.8 mg/dL (8.5-10.1); Chloride, Blood 104 mmol/L (98-108); Creatinine, Blood 0.77 mg/dL (0.60-1.20); Ethanol (Alcohol), Blood, Med <3 mg/dL; Globulin, Blood 3.6 g/dL (2.2-4.0); Glomerular Filtration Rate >60 (60-); Glucose, Blood 124 mg/dL (70-99); Potassium, Blood 4.8 mmol/L (3.5-5.5); Salicylate <1.7 mg/dL (2.8-20.0); Sodium, Blood 135 mmol/L (136-145); Total Protein, Blood 6.5 g/dL (6.4-8.2)
[2020-12-03 20:46] LABS: Acetaminophen, Random <2.0 ug/mL (10.0-30.0)
[2020-12-03 22:16] LABS: Source, Urine Clean Catch
[2020-12-03 22:26] LABS: Appearance, Urine Clear (Clear); Blood, Urine Neg (Neg); Color, Urine Amber (P-Yellow); Glucose Qualitative, Urine Neg (Neg); Ketones, Urine 1+ (Neg); Leukocyte Esterase, Urine 2+ (Neg); Nitrite, Urine Neg (Neg); Protein, Urine 2+ (Neg); Urobilinogen, Urine 3+ (Normal)
[2020-12-03 22:36] LABS: Bilirubin, Urine 1+ (Neg)
[2020-12-03 22:37] LABS: Bacteria Mod /hpf; Mucus Heavy (0-Heavy); Squamous Epithelial Cells Not Seen /hpf (Few)
[2020-12-03 22:39] LABS: U Amphetamine Screen Not Detected; U Barbituate Screen Not Detected; U Benzodiazapine Screen DETECTED; U Buprenorphine Screen Not Detected; U Cannabinoids Screen Not Detected; U Cocaine Screen Not Detected; U Methadone Screen Not Detected; U Methamphetamine Screen Not Detected; U Opiates Screen Not Detected; U Oxycodone Screen Not Detected; U Phencyclidine Screen Not Detected; U Propoxyphene Screen Not Detected
[2020-12-03 23:57] LABS: Lithium 0.89 mmol/L (0.60-1.20)
[2020-12-04 04:13] LABS: SARS-Cov-2 (COVID-19) PCR, MMC NEGATIVE (NEGATIVE)
--- NOTE | 2020-12-04 06:44 | NUR ---
SHIFT SUMMARY PATIENT ARRIVED TO UNIT FROM ER AT APPROXIMETLY 0525. SI PRECAUTIONS INITIATED AND SITTER/CAMERA AT BEDSIDE PATIENT HIGH RISK DUE TO OXYGEN NEEDS. SATING MID 90'S ON HOME DOSE OF 2L NC. VSS. NO TELE ORDERED. A&OX4 AND FORGETFUL AT TIMES. [place]. STATES HE IS FEELING DOWN BUT NOT SUICIDAL ANYMORE. THERAPEUTIC COMMUNICATION PROVIDED AND PATIENT COMPLIANT AND PLESANT WITH CARE AT THIS TIME. SNACKS PROVIDED AND PATIENT NOW RESTING COMFORTABLY. ABLE TO USE BATHROOM SBA OR URINAL IND. NO PAIN OR DISTRESS NOTED UPON ASSESSMENT. SITTER AT BEDSIDE DOING Q15 CHECKS. NO ACUTE CONCERNS AT THIS TIME. WILL CONTINUE TO MONITOR UNTIL REPORT GIVEN TO DAYSHIFT RN.
[2020-12-04] MEDS ORDERED: Lithium Carbon450 MG PO (10:21)
--- NOTE | 2020-12-04 18:14 | NUR ---
SHIFT SUMMARY PT WAS ON 1:1 AT THE START OF SHIFT TODAY BUT HAS BEEN DOWNGRADED TO LOW SUICIDE PRECAUTIONS, THE CAMERA REMAINS ON BUT THE 1;1 HAS BEEN DISCONTINUED. PT VS STABLE, PT TRANSFERRING TO MEDICAL FLOOR. REPORT WAS GIVEN TO RN. PT DENIES SUICIDAL THOUGHTS AT THIS TIME OR THE DESIRE TO HURT ANYONE. PT IS SHANIQUE
--- NOTE | 2020-12-04 18:39 | NUR ---
SHIFT SUMMARY PT TRANSFERRED TO THIS UNIT FROM PCU AT 1835 THIS SHIFT. RECEIVED REPORT FROM ELIJAH BACA. PT AAOX4, [place]. ABLE TO MAKE NEEDS KNOWN. PLEASANT AND COOPERATIVE TO CARE. NO C/O PAIN OR ANY DISCOMFORT. PT DENIES SUICIDAL IDEATIONS, DENIES FEELINGS OF INCREASE ANXIETY OR DEPRESSION. PT ON 2LPM O2 VIA NC. SATS >92%. PT APPEARS CALM AND COMFORTABLE IN BED AT THIS TIME. BED AT LOWEST POSITION. CALL LIGHT WITHIN REACH. PT CONTINUES ON SUICIDE PRECAUTIONS ORDERED.
--- NOTE | 2020-12-05 05:07 | NUR ---
SHIFT SUMMARY NO ACUTE CHANGES THIS SHIFT. AOX3. [place] CH[place]. TREMORS BUE. VSS. DENIES PAIN, N/V OR SOB. SPO2 >90% ON 2L O2 BASELINE. DENIES ANY SI THOUGHTS OR PLANS. PLEASENT & COOPERATIVE c CARE. AWAITING PSYCH RE-EVAL TODAY. CALL LIGHT IN REACH. WCTM.
--- NOTE | 2020-12-05 16:30 | NUR ---
SHIFT SUMMARY NO ACUTE CHANGES, A&O, CALM AND COOPERATIVE, DENIES ANY DISTRESS OR SI THIS SHIFT. HOSPITAL HOLD AND SI PRECAUTIONS LIFTED. POSSIBLE DC TOMORROW BACK TO [facility]. PT IS CURRENTLY DANGLING @ BEDSIDE, CALL LIGHT WITHIN REACH. CALLS APPROPRIATELY.
--- NOTE | 2020-12-06 04:30 | NUR ---
THIS RN TOOK OVER CARE AT 2029 PATIENT HAS BEEN SLEEPING THROUGHOUT THE SHIFT, BED ALARM ON AND CALL LIGHT WITHIN REACH. NO EVENTS OVERNIGHT.
--- NOTE | 2020-12-06 11:54 | NUR ---
PT DISCHARGED FROM THE UNIT. NO IV. MEDICATIONS FAXED. PT LEFT VIA WHEELCHAIR WITH TRANSPROT BACK TO [facility]. GAVE REPORT TO SHERIN.
== END 2020-12-06 11:48 | disposition home or self-care (01) ==
LOC: ER 19:40 → EOR 23:28 → PCU 23:28 → EOR 23:28 → PCU 12-04 05:25 → MEDS 12-04 05:34 → ENPENDDIS 12-06 07:45 → MEDS 12-06 11:48
PROVIDERS: Physician Assistant; Student in an Organized Health Care Education/Training Program; ADMIT Family Medicine
DX: F31.9 Bipolar disorder, unspecified (principal); J44.9 Chronic obstructive pulmonary disease, unspecified; I25.10 Atherosclerotic heart disease of native coronary artery without angina pectoris; G20 Parkinson's disease; E03.9 Hypothyroidism, unspecified; I10 Essential (primary) hypertension; F17.210 Nicotine dependence, cigarettes, uncomplicated; N40.0 Benign prostatic hyperplasia without lower urinary tract symptoms; Z20.822 Contact with and (suspected) exposure to COVID-19; E78.5 Hyperlipidemia, unspecified; K21.9 Gastro-esophageal reflux disease without esophagitis; G47.33 Obstructive sleep apnea (adult) (pediatric); I25.2 Old myocardial infarction
CPT/HCPCS: 80053; 80178; 81001; 85025; 87086; 99285; A9270; G0378; G0480; Q3014; U0004

== ENCOUNTER → 2020-12-22 | Outpatient (CLI) | payer MEDICARE, OTHER | END | disposition home or self-care (01) | LOC: LAB SHORT 09:45 → LAB 09:45 | DX: Z03.818 Encounter for observation for suspected exposure to other biological agents ruled out (principal); Z20.822 Contact with and (suspected) exposure to COVID-19 | CPT/HCPCS: U0003 ==

== ENCOUNTER → 2020-12-28 | Outpatient (CLI) | payer MEDICARE, OTHER | END | disposition home or self-care (01) | LOC: LAB 12:35 → LAB SHORT 12:35 | DX: Z03.818 Encounter for observation for suspected exposure to other biological agents ruled out (principal); Z20.822 Contact with and (suspected) exposure to COVID-19 | CPT/HCPCS: U0003 ==

== ENCOUNTER → 2021-01-22 | Outpatient (CLI) | payer MEDICARE, OTHER ==
[~2021-01-22] MED LIST changes: +ACET325 PO
[2021-01-24 16:42] LABS: CORONAVIRUS (COVID19) CSH-NRL Negative (Negative)
== END | disposition home or self-care (01) ==
LOC: LAB SHORT 08:00
PROVIDERS: Nurse Practitioner
DX: Z20.822 Contact with and (suspected) exposure to COVID-19 (principal)
CPT/HCPCS: U0003

== ENCOUNTER 2021-01-23 23:22 | Emergency (ER) | payer MEDICARE, OTHER ==
[~2021-01-23] VITALS: Ht 177.8 cm; Wt 79.4 kg
[~2021-01-23 23:22] MED LIST changes: -ACET325 PO
== END 2021-01-23 23:39 | disposition home or self-care (01) ==
LOC: ER 23:22
DX: Z00.8 Encounter for other general examination (principal); Z79.82 Long term (current) use of aspirin; Z79.899 Other long term (current) drug therapy; J44.9 Chronic obstructive pulmonary disease, unspecified; I25.10 Atherosclerotic heart disease of native coronary artery without angina pectoris; I10 Essential (primary) hypertension; E78.5 Hyperlipidemia, unspecified; E03.9 Hypothyroidism, unspecified; K21.9 Gastro-esophageal reflux disease without esophagitis; F41.9 Anxiety disorder, unspecified; F31.9 Bipolar disorder, unspecified; F17.210 Nicotine dependence, cigarettes, uncomplicated; W19.XXXA Unspecified fall, initial encounter
CPT/HCPCS: 99283

== ENCOUNTER → 2021-01-25 | Outpatient (CLI) | payer MEDICARE, OTHER ==
[~2021-01-25] MED LIST changes: +ACET325 PO
== END | disposition home or self-care (01) ==
LOC: LAB SHORT 15:18 → LAB 15:18
DX: Z20.822 Contact with and (suspected) exposure to COVID-19 (principal)
CPT/HCPCS: U0003

== ENCOUNTER 2021-01-27 22:30 | Emergency (ER) | payer OTHER, MEDICARE ==
[~2021-01-27] VITALS: Ht 175.3 cm; Wt 90.7 kg
[~2021-01-27 22:30] MED LIST changes: -ACET325 PO
[2021-01-27] MEDS ORDERED: ACET325 PO (22:57)
== END 2021-01-28 00:40 | disposition home or self-care (01) ==
LOC: ER 22:30
DX: S70.01XA Contusion of right hip, initial encounter (principal); I10 Essential (primary) hypertension; J44.9 Chronic obstructive pulmonary disease, unspecified; I25.10 Atherosclerotic heart disease of native coronary artery without angina pectoris; E78.5 Hyperlipidemia, unspecified; E03.9 Hypothyroidism, unspecified; K21.9 Gastro-esophageal reflux disease without esophagitis; N40.0 Benign prostatic hyperplasia without lower urinary tract symptoms; Z79.899 Other long term (current) drug therapy; Z79.82 Long term (current) use of aspirin; Z87.891 Personal history of nicotine dependence; W01.0XXA Fall on same level from slipping, tripping and stumbling without subsequent striking against object, initial encounter
CPT/HCPCS: 73502; 99283-25

== ENCOUNTER 2021-02-13 22:11 | Emergency (ER) | payer MEDICARE, OTHER ==
[~2021-02-13] VITALS: Ht 175.3 cm; Wt 90.7 kg
[~2021-02-13 22:11] MED LIST changes: +ACET325 PO
== END 2021-02-13 23:44 | disposition home or self-care (01) ==
LOC: ER 22:11
DX: M25.551 Pain in right hip (principal); J44.9 Chronic obstructive pulmonary disease, unspecified; I25.10 Atherosclerotic heart disease of native coronary artery without angina pectoris; I10 Essential (primary) hypertension; E78.5 Hyperlipidemia, unspecified; K21.9 Gastro-esophageal reflux disease without esophagitis; N40.0 Benign prostatic hyperplasia without lower urinary tract symptoms; Z79.899 Other long term (current) drug therapy; Z79.82 Long term (current) use of aspirin; Z87.891 Personal history of nicotine dependence
CPT/HCPCS: 73502; 99283-25; A9270

== ENCOUNTER 2021-02-18 14:10 | Emergency (ER) | payer MEDICARE, OTHER ==
[~2021-02-18] VITALS: Ht 177.8 cm; Wt 74.8 kg
[2021-02-18 14:44] LABS: BASOPHILS ABSOLUTE AUTO 0.02 K/mm3 (0.00-0.23); BASOPHILS PERCENT AUTO 0 % (0-2); EOSINOPHILS ABSOLUTE AUTO 0.12 K/mm3 (0.00-0.68); EOSINOPHILS PERCENT AUTO 2 % (0-6); Hematocrit 37.5 % (37.0-53.0); Hemoglobin 11.5 g/dL (13.5-17.5); IMMATURE GRAN ABSOLUTE AUTO 0.04 K/mm3 (0.00-0.10); IMMATURE GRAN PERCENT AUTO 1 % (0-1); LYMPHOCYTES ABSOLUTE AUTO 0.91 K/mm3 (0.84-5.20); LYMPHOCYTES PERCENT AUTO 14 % (21-46); MONOCYTES PERCENT AUTO 6 % (4-13); Mean Corpuscular HGB 29.2 pg (26.0-34.0); Mean Corpuscular HGB Conc 30.7 g/dL (31.5-36.5); Mean Corpuscular Volume 95 fL (80-100); Mean Platelet Volume 9.6 fL (9.1-12.4); NEUTROPHILS ABSOLUTE AUTO 4.89 K/mm3 (1.96-9.15); NEUTROPHILS PERCENT AUTO 77 % (41-73); Platelet Count 223 K/mm3 (150-400); Red Blood Cell Count 3.94 M/mm3 (4.30-5.90); White Blood Cell Count 6.38 K/mm3 (4.00-11.30)
[2021-02-18 14:57] LABS: Alanine Aminotransfer (ALT/SGP 6 U/L (12-78); Albumin, Blood 2.8 g/dL (3.4-5.0); Albumin/Globulin Ratio 0.7 (0.8-1.8); Alk Phos 103 U/L (50-136); Anion Gap 3 mmol/L (6-16); Aspartate Aminotrans (AST/SGOT 14 U/L (12-37); Bilirubin, Total 0.5 mg/dL (0.1-1.0); Blood Urea Nitrogen 11 mg/dL (8-24); Bun/Creatinine Ratio 15.9 (12.0-20.0); CO2, Blood 31 mmol/L (21-32); Calcium, Blood 9.2 mg/dL (8.5-10.1); Chloride, Blood 103 mmol/L (98-108); Creatinine, Blood 0.69 mg/dL (0.60-1.20); Globulin, Blood 3.8 g/dL (2.2-4.0); Glomerular Filtration Rate >60 (60-); Glucose, Blood 95 mg/dL (70-99); Potassium, Blood 4.2 mmol/L (3.5-5.5); Sodium, Blood 137 mmol/L (136-145); Total Protein, Blood 6.6 g/dL (6.4-8.2)
[2021-02-18 15:32] LABS: Lithium 0.98 mmol/L (0.60-1.20)
[2021-02-18 16:20] LABS: Source, Urine Clean Catch
[2021-02-18 16:39] LABS: Appearance, Urine Clear (Clear); Bilirubin, Urine Neg (Neg); Blood, Urine 1+ (Neg); Color, Urine Yellow (P-Yellow); Glucose Qualitative, Urine Neg (Neg); Ketones, Urine 2+ (Neg); Leukocyte Esterase, Urine 3+ (Neg); Nitrite, Urine Neg (Neg); Protein, Urine 2+ (Neg); Specific Gravity, Urine 1.015 (1.003-1.022); Urobilinogen, Urine 2+ (Normal); pH, Urine 6.5 (5.0-8.0)
[2021-02-18 17:08] LABS: Bacteria Few /hpf; Granular Casts Rare /lpf (0); Red Blood Cells, Urine 0-2 /hpf (0-2); Squamous Epithelial Cells Few /hpf (Few); WBC Cast Rare /lpf (0)
[2021-02-18] MEDS ORDERED: CEPH500 PO (17:15)
== END 2021-02-18 18:12 | disposition home or self-care (01) ==
LOC: ER 14:10
PROVIDERS: Physician Assistant
DX: N39.0 Urinary tract infection, site not specified (principal); R47.81 Slurred speech; J44.9 Chronic obstructive pulmonary disease, unspecified; I25.10 Atherosclerotic heart disease of native coronary artery without angina pectoris; G20 Parkinson's disease; I10 Essential (primary) hypertension; E78.5 Hyperlipidemia, unspecified; E03.9 Hypothyroidism, unspecified; K21.9 Gastro-esophageal reflux disease without esophagitis; Z79.899 Other long term (current) drug therapy; Z79.82 Long term (current) use of aspirin
CPT/HCPCS: 80053; 80178; 81001; 85025; 87086; 93005; 93010; 99285-25; A9270

== ENCOUNTER 2021-02-24 19:22 | Emergency (ER) | payer MEDICARE, OTHER ==
[~2021-02-24] VITALS: Ht 182.9 cm; Wt 77.1 kg
[~2021-02-24 19:22] MED LIST changes: +CEPH500 PO
== END 2021-02-24 21:15 | disposition home or self-care (01) ==
LOC: ER 19:22
DX: G20 Parkinson's disease (principal); R47.9 Unspecified speech disturbances; I10 Essential (primary) hypertension; E78.5 Hyperlipidemia, unspecified; E03.9 Hypothyroidism, unspecified; K21.9 Gastro-esophageal reflux disease without esophagitis; Z79.899 Other long term (current) drug therapy
CPT/HCPCS: 99284

== ENCOUNTER 2021-03-01 19:46 | Emergency (ER) | payer MEDICARE, OTHER ==
[~2021-03-01] VITALS: Ht 175.3 cm; Wt 90.7 kg
[2021-03-01] MEDS ORDERED: ONDA4ODT MM (20:27)
== END 2021-03-01 22:13 | disposition home or self-care (01) ==
LOC: ER 19:46
DX: R11.0 Nausea (principal); J44.9 Chronic obstructive pulmonary disease, unspecified; I25.10 Atherosclerotic heart disease of native coronary artery without angina pectoris; I10 Essential (primary) hypertension; E78.5 Hyperlipidemia, unspecified; E03.9 Hypothyroidism, unspecified; K21.9 Gastro-esophageal reflux disease without esophagitis; Z79.82 Long term (current) use of aspirin; Z79.899 Other long term (current) drug therapy
CPT/HCPCS: 36415; 99283; A9270

== ENCOUNTER 2021-03-14 13:32 | Emergency (ER) | payer MEDICARE, OTHER ==
[~2021-03-14] VITALS: Ht 177.8 cm; Wt 77.1 kg
[2021-03-14] MEDS ORDERED: MIRALAX1710 PO (13:49)
[2021-03-14 15:10] LABS: BASOPHILS ABSOLUTE AUTO 0.03 K/mm3 (0.00-0.23); BASOPHILS PERCENT AUTO 1 % (0-2); EOSINOPHILS ABSOLUTE AUTO 0.13 K/mm3 (0.00-0.68); EOSINOPHILS PERCENT AUTO 2 % (0-6); Hematocrit 38.4 % (37.0-53.0); Hemoglobin 11.7 g/dL (13.5-17.5); IMMATURE GRAN ABSOLUTE AUTO 0.02 K/mm3 (0.00-0.10); IMMATURE GRAN PERCENT AUTO 0 % (0-1); LYMPHOCYTES ABSOLUTE AUTO 0.99 K/mm3 (0.84-5.20); LYMPHOCYTES PERCENT AUTO 16 % (21-46); MONOCYTES ABSOLUTE AUTO 0.56 K/mm3 (0.16-1.47); MONOCYTES PERCENT AUTO 9 % (4-13); Mean Corpuscular HGB 28.4 pg (26.0-34.0); Mean Corpuscular HGB Conc 30.5 g/dL (31.5-36.5); Mean Corpuscular Volume 93 fL (80-100); Mean Platelet Volume 8.7 fL (9.1-12.4); NEUTROPHILS ABSOLUTE AUTO 4.35 K/mm3 (1.96-9.15); NEUTROPHILS PERCENT AUTO 72 % (41-73); Platelet Count 210 K/mm3 (150-400); RDW Coefficient Variation 13.4 % (11.7-14.2); RDW Standard Deviation 45.8 fL (35.1-46.3); Red Blood Cell Count 4.12 M/mm3 (4.30-5.90); White Blood Cell Count 6.08 K/mm3 (4.00-11.30)
[2021-03-14 15:38] LABS: Alanine Aminotransfer (ALT/SGP 7 U/L (12-78); Albumin, Blood 2.4 g/dL (3.4-5.0); Albumin/Globulin Ratio 0.6 (0.8-1.8); Alk Phos 103 U/L (50-136); Anion Gap 4 mmol/L (6-16); Aspartate Aminotrans (AST/SGOT 10 U/L (12-37); Bilirubin, Total 0.4 mg/dL (0.1-1.0); Blood Urea Nitrogen 13 mg/dL (8-24); Bun/Creatinine Ratio 20.5 (12.0-20.0); CO2, Blood 31 mmol/L (21-32); Calcium, Blood 9.1 mg/dL (8.5-10.1); Chloride, Blood 100 mmol/L (98-108); Creatinine, Blood 0.64 mg/dL (0.60-1.20); Ethanol (Alcohol), Blood, Med <3 mg/dL; Globulin, Blood 3.7 g/dL (2.2-4.0); Glomerular Filtration Rate >60 (60-); Glucose, Blood 104 mg/dL (70-99); Salicylate <1.7 mg/dL (2.8-20.0); Sodium, Blood 135 mmol/L (136-145); Total Protein, Blood 6.1 g/dL (6.4-8.2)
[2021-03-14 15:39] LABS: Acetaminophen, Random <2.0 ug/mL (10.0-30.0)
== END 2021-03-14 19:05 | disposition home or self-care (01) ==
LOC: ER 13:32
PROVIDERS: Student in an Organized Health Care Education/Training Program
DX: F32.A Depression, unspecified (principal); D64.9 Anemia, unspecified; G20 Parkinson's disease; Z79.899 Other long term (current) drug therapy; Z79.82 Long term (current) use of aspirin; J44.9 Chronic obstructive pulmonary disease, unspecified; I25.10 Atherosclerotic heart disease of native coronary artery without angina pectoris; I10 Essential (primary) hypertension; E78.00 Pure hypercholesterolemia, unspecified; E03.9 Hypothyroidism, unspecified; K21.9 Gastro-esophageal reflux disease without esophagitis; F17.200 Nicotine dependence, unspecified, uncomplicated
CPT/HCPCS: 36415; 80053; 80178; 84443; 85025; 99285; G0480

== ENCOUNTER 2021-05-13 00:06 | Emergency (ER) | payer MEDICARE, OTHER ==
[~2021-05-13] VITALS: Ht 175.3 cm; Wt 79.4 kg
[~2021-05-13 00:06] MED LIST changes: +MIRALAX1710 PO
[2021-05-13] MEDS ORDERED: CITRATE OF MAG296 M1 PO (01:47)
[2021-05-13] MEDS ORDERED: Dulcolax5 MG PO (01:47)
== END 2021-05-13 02:45 | disposition home or self-care (01) ==
LOC: ER 00:06
DX: K59.00 Constipation, unspecified (principal); Z79.82 Long term (current) use of aspirin; Z79.899 Other long term (current) drug therapy; J44.9 Chronic obstructive pulmonary disease, unspecified; I25.10 Atherosclerotic heart disease of native coronary artery without angina pectoris; I10 Essential (primary) hypertension; E78.00 Pure hypercholesterolemia, unspecified; E03.9 Hypothyroidism, unspecified; K21.9 Gastro-esophageal reflux disease without esophagitis
CPT/HCPCS: A9270

== ENCOUNTER 2021-05-15 00:16 | Emergency (ER) | payer MEDICARE, OTHER ==
[~2021-05-15] VITALS: Ht 175.3 cm; Wt 79.4 kg
[~2021-05-15 00:16] MED LIST changes: +CITRATE OF MAG296 M1 PO; +Dulcolax5 MG PO
[2021-05-15] MEDS ORDERED: DOCU100 PO (01:49)
== END 2021-05-15 02:38 | disposition home or self-care (01) ==
LOC: ER 00:16
DX: K59.00 Constipation, unspecified (principal); J44.9 Chronic obstructive pulmonary disease, unspecified; I25.10 Atherosclerotic heart disease of native coronary artery without angina pectoris; I10 Essential (primary) hypertension; E78.00 Pure hypercholesterolemia, unspecified; E03.9 Hypothyroidism, unspecified; K21.9 Gastro-esophageal reflux disease without esophagitis; Z79.82 Long term (current) use of aspirin; Z79.899 Other long term (current) drug therapy
CPT/HCPCS: 99283; A9270

== ENCOUNTER → 2021-06-25 | Outpatient (CLI) | payer MEDICARE, OTHER ==
[~2021-06-25] MED LIST changes: +DOCU100 PO
== END | disposition home or self-care (01) ==
LOC: LAB SHORT 08:08 → PLD 08:08
DX: B35.1 Tinea unguium (principal)
CPT/HCPCS: 88305; 88312

== ENCOUNTER → 2021-07-15 | Outpatient (CLI) | payer MEDICARE, OTHER | END | disposition home or self-care (01) | LOC: LAB 14:39 → LAB SHORT 14:39 | DX: E03.9 Hypothyroidism, unspecified (principal) | CPT/HCPCS: 84443 ==

== ENCOUNTER 2021-12-06 09:12 | Emergency (ER) | payer MEDICARE, OTHER ==
[~2021-12-06] VITALS: Ht 175.3 cm; Wt 90.7 kg
[2021-12-06 09:38] LABS: BASOPHILS ABSOLUTE AUTO 0.02 K/mm3 (0.00-0.23); BASOPHILS PERCENT AUTO 0 % (0-2); EOSINOPHILS ABSOLUTE AUTO 0.18 K/mm3 (0.00-0.68); EOSINOPHILS PERCENT AUTO 3 % (0-6); Hemoglobin 13.5 g/dL (13.5-17.5); IMMATURE GRAN ABSOLUTE AUTO 0.02 K/mm3 (0.00-0.10); IMMATURE GRAN PERCENT AUTO 0 % (0-1); LYMPHOCYTES ABSOLUTE AUTO 0.74 K/mm3 (0.84-5.20); LYMPHOCYTES PERCENT AUTO 11 % (21-46); MONOCYTES ABSOLUTE AUTO 0.51 K/mm3 (0.16-1.47); MONOCYTES PERCENT AUTO 7 % (4-13); Mean Corpuscular HGB 29.9 pg (26.0-34.0); Mean Corpuscular HGB Conc 31.4 g/dL (31.5-36.5); Mean Corpuscular Volume 95 fL (80-100); Mean Platelet Volume 9.3 fL (9.1-12.4); NEUTROPHILS ABSOLUTE AUTO 5.43 K/mm3 (1.96-9.15); NEUTROPHILS PERCENT AUTO 79 % (41-73); Platelet Count 158 K/mm3 (150-400); RDW Coefficient Variation 12.1 % (11.7-14.2); RDW Standard Deviation 41.9 fL (35.1-46.3); Red Blood Cell Count 4.52 M/mm3 (4.30-5.90)
[2021-12-06 09:56] LABS: Albumin, Blood 3.2 g/dL (3.4-5.0); Albumin/Globulin Ratio 0.9 (0.8-1.8); Bilirubin, Total 0.6 mg/dL (0.1-1.0); Bun/Creatinine Ratio 31.4 (12.0-20.0); Calcium, Blood 9.1 mg/dL (8.5-10.1); Creatinine, Blood 0.89 mg/dL (0.60-1.20); Globulin, Blood 3.4 g/dL (2.2-4.0); Potassium, Blood 4.6 mmol/L (3.5-5.5); Total Protein, Blood 6.6 g/dL (6.4-8.2)
[2021-12-06] MEDS ORDERED: MIRALAX17 GM PO (15:52)
== END 2021-12-06 17:18 | disposition home or self-care (01) ==
LOC: ER 09:12
PROVIDERS: Physician Assistant
DX: K56.41 Fecal impaction (principal); J44.9 Chronic obstructive pulmonary disease, unspecified; I25.10 Atherosclerotic heart disease of native coronary artery without angina pectoris; I10 Essential (primary) hypertension; G20 Parkinson's disease; Z79.899 Other long term (current) drug therapy; Z79.82 Long term (current) use of aspirin
CPT/HCPCS: 74177; 80053; 83690; 85025; A9270; Q9967

== ENCOUNTER 2022-11-19 17:23 | Emergency (ER) | payer MEDICARE, OTHER ==
[~2022-11-19] VITALS: Ht 175.3 cm; Wt 93.4 kg
[2022-11-19 22:30] VITALS: BP 107/74
== END 2022-11-19 22:45 | disposition home or self-care (01) ==
LOC: ER 17:23
DX: K59.00 Constipation, unspecified (principal); J44.9 Chronic obstructive pulmonary disease, unspecified; I25.10 Atherosclerotic heart disease of native coronary artery without angina pectoris; G20 Parkinson's disease; I10 Essential (primary) hypertension; E78.00 Pure hypercholesterolemia, unspecified; E03.9 Hypothyroidism, unspecified; K21.9 Gastro-esophageal reflux disease without esophagitis; F17.200 Nicotine dependence, unspecified, uncomplicated; Z79.899 Other long term (current) drug therapy; Z79.82 Long term (current) use of aspirin
CPT/HCPCS: 74018

== ENCOUNTER 2022-11-22 18:45 | Emergency (ER) | payer MEDICARE, OTHER ==
[~2022-11-22] VITALS: Ht 175.3 cm; Wt 93.4 kg
[2022-11-22 19:10] LABS: BASOPHILS ABSOLUTE AUTO 0.02 K/mm3 (0.00-0.23); BASOPHILS PERCENT AUTO 0 % (0-2); EOSINOPHILS PERCENT AUTO 2 % (0-6); Hematocrit 42.3 % (37.0-53.0); Hemoglobin 13.3 g/dL (13.5-17.5); IMMATURE GRAN ABSOLUTE AUTO 0.05 K/mm3 (0.00-0.10); IMMATURE GRAN PERCENT AUTO 1 % (0-1); LYMPHOCYTES ABSOLUTE AUTO 0.79 K/mm3 (0.84-5.20); LYMPHOCYTES PERCENT AUTO 9 % (21-46); MONOCYTES ABSOLUTE AUTO 0.67 K/mm3 (0.16-1.47); MONOCYTES PERCENT AUTO 8 % (4-13); Mean Corpuscular HGB 29.9 pg (26.0-34.0); Mean Corpuscular HGB Conc 31.4 g/dL (31.5-36.5); Mean Corpuscular Volume 95 fL (80-100); Mean Platelet Volume 8.8 fL (9.1-12.4); NEUTROPHILS PERCENT AUTO 80 % (41-73); Platelet Count 211 K/mm3 (150-400); RDW Coefficient Variation 13.2 % (11.7-14.2); RDW Standard Deviation 46.1 fL (35.1-46.3); Red Blood Cell Count 4.45 M/mm3 (4.30-5.90); White Blood Cell Count 8.73 K/mm3 (4.00-11.30)
[2022-11-22 19:30] LABS: Albumin/Globulin Ratio 0.9 (0.8-1.8); Bilirubin, Total 0.3 mg/dL (0.1-1.0); Bun/Creatinine Ratio 24.4 (12.0-20.0); Calcium, Blood 9.2 mg/dL (8.5-10.1); Creatinine, Blood 0.74 mg/dL (0.60-1.20); Globulin, Blood 3.5 g/dL (2.2-4.0); Potassium, Blood 4.3 mmol/L (3.5-5.5); Total Protein, Blood 6.5 g/dL (6.4-8.2)
[2022-11-23 01:05] VITALS: BP 113/77
== END 2022-11-23 01:05 | disposition home or self-care (01) ==
LOC: ER 18:45
PROVIDERS: Emergency Medicine
DX: K59.00 Constipation, unspecified (principal); J44.9 Chronic obstructive pulmonary disease, unspecified; I25.10 Atherosclerotic heart disease of native coronary artery without angina pectoris; G20 Parkinson's disease; I10 Essential (primary) hypertension; E78.00 Pure hypercholesterolemia, unspecified; E03.9 Hypothyroidism, unspecified; K21.9 Gastro-esophageal reflux disease without esophagitis; F17.200 Nicotine dependence, unspecified, uncomplicated; Z79.82 Long term (current) use of aspirin; Z79.899 Other long term (current) drug therapy
CPT/HCPCS: 74019; 80053; 83690; 85025; 99284-25

== ENCOUNTER 2022-11-23 03:21 | Emergency (ER) | payer MEDICARE, OTHER ==
[~2022-11-23] VITALS: Ht 175.3 cm; Wt 93.4 kg
[2022-11-23 09:00] VITALS: BP 119/72
== END 2022-11-23 09:53 | disposition home or self-care (01) ==
LOC: ER 03:21
DX: K59.00 Constipation, unspecified (principal); I25.10 Atherosclerotic heart disease of native coronary artery without angina pectoris; J44.9 Chronic obstructive pulmonary disease, unspecified; G20 Parkinson's disease; I10 Essential (primary) hypertension; E78.00 Pure hypercholesterolemia, unspecified; F17.200 Nicotine dependence, unspecified, uncomplicated; Z79.82 Long term (current) use of aspirin; Z79.899 Other long term (current) drug therapy
CPT/HCPCS: 99283; A9270

== ENCOUNTER 2022-12-03 17:04 | Emergency (ER) | payer MEDICARE, OTHER ==
[~2022-12-03] VITALS: Ht 175.3 cm; Wt 94.8 kg
[2022-12-03 17:58] LABS: BASOPHILS ABSOLUTE AUTO 0.01 K/mm3 (0.00-0.23); BASOPHILS PERCENT AUTO 0 % (0-2); EOSINOPHILS ABSOLUTE AUTO 0.01 K/mm3 (0.00-0.68); EOSINOPHILS PERCENT AUTO 0 % (0-6); Hematocrit 42.6 % (37.0-53.0); Hemoglobin 13.4 g/dL (13.5-17.5); IMMATURE GRAN ABSOLUTE AUTO 0.06 K/mm3 (0.00-0.10); IMMATURE GRAN PERCENT AUTO 1 % (0-1); LYMPHOCYTES ABSOLUTE AUTO 0.76 K/mm3 (0.84-5.20); LYMPHOCYTES PERCENT AUTO 8 % (21-46); MONOCYTES ABSOLUTE AUTO 1.14 K/mm3 (0.16-1.47); MONOCYTES PERCENT AUTO 12 % (4-13); Mean Corpuscular HGB 29.8 pg (26.0-34.0); Mean Corpuscular HGB Conc 31.5 g/dL (31.5-36.5); Mean Corpuscular Volume 95 fL (80-100); Mean Platelet Volume 8.6 fL (9.1-12.4); NEUTROPHILS ABSOLUTE AUTO 7.67 K/mm3 (1.96-9.15); NEUTROPHILS PERCENT AUTO 80 % (41-73); Platelet Count 173 K/mm3 (150-400); RDW Coefficient Variation 13.4 % (11.7-14.2); RDW Standard Deviation 47.4 fL (35.1-46.3); Red Blood Cell Count 4.49 M/mm3 (4.30-5.90); White Blood Cell Count 9.65 K/mm3 (4.00-11.30)
[2022-12-03 18:26] LABS: Acetaminophen, Random <2.0 ug/mL (10.0-30.0); Alanine Aminotransfer (ALT/SGP 18 U/L (12-78); Albumin/Globulin Ratio 0.8 (0.8-1.8); Alk Phos 84 U/L (50-136); Anion Gap 6 mmol/L (6-16); Aspartate Aminotrans (AST/SGOT 27 U/L (12-37); Bilirubin, Total 0.5 mg/dL (0.1-1.0); Blood Urea Nitrogen 18 mg/dL (8-24); Bun/Creatinine Ratio 20.5 (12.0-20.0); CO2, Blood 29 mmol/L (21-32); Calcium, Blood 8.9 mg/dL (8.5-10.1); Chloride, Blood 100 mmol/L (98-108); Creatinine, Blood 0.88 mg/dL (0.60-1.20); Ethanol (Alcohol), Blood, Med 3 mg/dL; Globulin, Blood 3.6 g/dL (2.2-4.0); Glomerular Filtration Rate 93 (60-); Glucose, Blood 115 mg/dL (70-99); Potassium, Blood 4.4 mmol/L (3.5-5.5); Salicylate <1.7 mg/dL (2.8-20.0); Sodium, Blood 135 mmol/L (136-145); Thyroxine (T4) 10.8 ug/dL (4.5-12.1); Total Protein, Blood 6.6 g/dL (6.4-8.2)
[2022-12-03 18:28] LABS: Lithium 0.88 mmol/L (0.60-1.20)
[2022-12-03] MEDS ORDERED: Prozac20 MG PO (21:11)
[2022-12-03 23:09] VITALS: BP 121/79
== END 2022-12-03 22:01 | disposition home or self-care (01) ==
LOC: ER 17:04
PROVIDERS: Physician Assistant
DX: F32.A Depression, unspecified (principal); Z79.899 Other long term (current) drug therapy; Z79.82 Long term (current) use of aspirin; J44.9 Chronic obstructive pulmonary disease, unspecified; I25.10 Atherosclerotic heart disease of native coronary artery without angina pectoris; G20 Parkinson's disease; I10 Essential (primary) hypertension; E78.00 Pure hypercholesterolemia, unspecified; E03.9 Hypothyroidism, unspecified; K21.9 Gastro-esophageal reflux disease without esophagitis; F17.200 Nicotine dependence, unspecified, uncomplicated
CPT/HCPCS: 80053; 80178; 84436; 85025; 99285-25; A9270; G0480; Q3014

== ENCOUNTER 2022-12-27 18:10 | Emergency (ER) | payer MEDICARE, OTHER ==
[~2022-12-27] VITALS: Ht 175.3 cm; Wt 93.4 kg
[2022-12-27 19:34] LABS: BASOPHILS ABSOLUTE AUTO 0.02 K/mm3 (0.00-0.23); BASOPHILS PERCENT AUTO 0 % (0-2); EOSINOPHILS ABSOLUTE AUTO 0.15 K/mm3 (0.00-0.68); EOSINOPHILS PERCENT AUTO 2 % (0-6); Hematocrit 41.3 % (37.0-53.0); Hemoglobin 12.8 g/dL (13.5-17.5); IMMATURE GRAN ABSOLUTE AUTO 0.05 K/mm3 (0.00-0.10); IMMATURE GRAN PERCENT AUTO 1 % (0-1); LYMPHOCYTES ABSOLUTE AUTO 0.74 K/mm3 (0.84-5.20); LYMPHOCYTES PERCENT AUTO 10 % (21-46); MONOCYTES ABSOLUTE AUTO 0.62 K/mm3 (0.16-1.47); MONOCYTES PERCENT AUTO 9 % (4-13); Mean Corpuscular HGB 29.4 pg (26.0-34.0); Mean Corpuscular Volume 95 fL (80-100); Mean Platelet Volume 9.3 fL (9.1-12.4); NEUTROPHILS ABSOLUTE AUTO 5.74 K/mm3 (1.96-9.15); NEUTROPHILS PERCENT AUTO 78 % (41-73); Platelet Count 219 K/mm3 (150-400); RDW Coefficient Variation 13.2 % (11.7-14.2); RDW Standard Deviation 46.5 fL (35.1-46.3); Red Blood Cell Count 4.36 M/mm3 (4.30-5.90); White Blood Cell Count 7.32 K/mm3 (4.00-11.30)
[2022-12-27 19:42] LABS: Source, Urine Clean Catch
[2022-12-27 19:48] LABS: Appearance, Urine Clear (Clear); Bilirubin, Urine Neg (Neg); Blood, Urine Neg (Neg); Color, Urine Amber (P-Yellow); Glucose Qualitative, Urine Neg (Neg); Ketones, Urine 1+ (Neg); Leukocyte Esterase, Urine 1+ (Neg); Nitrite, Urine Neg (Neg); Protein, Urine 1+ (Neg); Urobilinogen, Urine 3+ (Normal)
[2022-12-27 19:58] LABS: Albumin, Blood 2.7 g/dL (3.4-5.0); Albumin/Globulin Ratio 0.7 (0.8-1.8); Bilirubin, Total 0.3 mg/dL (0.1-1.0); Bun/Creatinine Ratio 19.8 (12.0-20.0); Calcium, Blood 9.1 mg/dL (8.5-10.1); Creatinine, Blood 0.76 mg/dL (0.60-1.20); Globulin, Blood 3.7 g/dL (2.2-4.0); Potassium, Blood 4.2 mmol/L (3.5-5.5); Total Protein, Blood 6.4 g/dL (6.4-8.2)
[2022-12-27 20:30] LABS: Bacteria Mod /hpf; Red Blood Cells, Urine 0-2 /hpf (0-2); Squamous Epithelial Cells Rare /hpf (Few)
[2022-12-27 22:44] VITALS: BP 109/84
[2022-12-27] MEDS ORDERED: DULCOLAX400 MG/5 M PO (22:48)
[2022-12-27] MEDS ORDERED: DOCUSATE S283 MG/51 PR (22:48)
== END 2022-12-27 23:45 | disposition home or self-care (01) ==
LOC: ER 18:10
PROVIDERS: Emergency Medicine
DX: K59.00 Constipation, unspecified (principal); J44.9 Chronic obstructive pulmonary disease, unspecified; I25.10 Atherosclerotic heart disease of native coronary artery without angina pectoris; I10 Essential (primary) hypertension; E03.9 Hypothyroidism, unspecified; K21.9 Gastro-esophageal reflux disease without esophagitis; Z79.899 Other long term (current) drug therapy; Z79.82 Long term (current) use of aspirin; Z79.890 Hormone replacement therapy
CPT/HCPCS: 51798; 74177; 80053; 81001; 85025; 87086; 87147; 99285-25; A9270; Q9967

== ENCOUNTER 2022-12-30 14:32 | Emergency (ER) | payer MEDICARE, OTHER ==
[~2022-12-30] VITALS: Ht 182.9 cm; Wt 90.7 kg
[~2022-12-30 14:32] MED LIST changes: +DOCUSATE S283 MG/51 PR; +DULCOLAX400 MG/5 M PO
[2022-12-30 15:13] LABS: BASOPHILS ABSOLUTE AUTO 0.03 K/mm3 (0.00-0.23); BASOPHILS PERCENT AUTO 0 % (0-2); EOSINOPHILS ABSOLUTE AUTO 0.12 K/mm3 (0.00-0.68); EOSINOPHILS PERCENT AUTO 1 % (0-6); Hematocrit 44.6 % (37.0-53.0); Hemoglobin 13.8 g/dL (13.5-17.5); IMMATURE GRAN ABSOLUTE AUTO 0.09 K/mm3 (0.00-0.10); IMMATURE GRAN PERCENT AUTO 1 % (0-1); LYMPHOCYTES ABSOLUTE AUTO 0.64 K/mm3 (0.84-5.20); LYMPHOCYTES PERCENT AUTO 6 % (21-46); MONOCYTES ABSOLUTE AUTO 0.65 K/mm3 (0.16-1.47); MONOCYTES PERCENT AUTO 6 % (4-13); Mean Corpuscular HGB 29.2 pg (26.0-34.0); Mean Corpuscular HGB Conc 30.9 g/dL (31.5-36.5); Mean Corpuscular Volume 95 fL (80-100); Mean Platelet Volume 9.2 fL (9.1-12.4); NEUTROPHILS ABSOLUTE AUTO 9.25 K/mm3 (1.96-9.15); NEUTROPHILS PERCENT AUTO 86 % (41-73); Platelet Count 252 K/mm3 (150-400); RDW Coefficient Variation 13.2 % (11.7-14.2); RDW Standard Deviation 46.2 fL (35.1-46.3); Red Blood Cell Count 4.72 M/mm3 (4.30-5.90); White Blood Cell Count 10.78 K/mm3 (4.00-11.30)
[2022-12-30 15:35] LABS: Albumin, Blood 3.1 g/dL (3.4-5.0); Albumin/Globulin Ratio 0.8 (0.8-1.8); Bilirubin, Total 0.6 mg/dL (0.1-1.0); Bun/Creatinine Ratio 27.5 (12.0-20.0); Calcium, Blood 9.6 mg/dL (8.5-10.1); Creatinine, Blood 0.84 mg/dL (0.60-1.20); Potassium, Blood 4.5 mmol/L (3.5-5.5); Total Protein, Blood 7.1 g/dL (6.4-8.2)
[2022-12-30 19:30] VITALS: BP 118/79
[2022-12-30] MEDS ORDERED: DOCU100 PO (19:35)
[2022-12-30] MEDS ORDERED: SENNA LAXATIVE8.6 MG PO (19:35)
== END 2022-12-30 20:14 | disposition home or self-care (01) ==
LOC: ER 14:32
PROVIDERS: Student in an Organized Health Care Education/Training Program
DX: K59.00 Constipation, unspecified (principal); J44.9 Chronic obstructive pulmonary disease, unspecified; I25.10 Atherosclerotic heart disease of native coronary artery without angina pectoris; G20 Parkinson's disease; I10 Essential (primary) hypertension; E78.00 Pure hypercholesterolemia, unspecified; E03.9 Hypothyroidism, unspecified; K21.9 Gastro-esophageal reflux disease without esophagitis; F31.9 Bipolar disorder, unspecified; F17.200 Nicotine dependence, unspecified, uncomplicated; Z79.899 Other long term (current) drug therapy; Z79.82 Long term (current) use of aspirin
CPT/HCPCS: 74018; 80053; 83690; 85025; 99283-25; A9270

== ENCOUNTER 2023-01-07 12:30 | Emergency (ER) | payer MEDICARE, OTHER ==
[~2023-01-07] VITALS: Ht 175.3 cm; Wt 93.4 kg
[~2023-01-07 12:30] MED LIST changes: +SENNA LAXATIVE8.6 MG PO
[2023-01-07 14:37] LABS: BASOPHILS ABSOLUTE AUTO 0.02 K/mm3 (0.00-0.23); BASOPHILS PERCENT AUTO 0 % (0-2); EOSINOPHILS ABSOLUTE AUTO 0.16 K/mm3 (0.00-0.68); EOSINOPHILS PERCENT AUTO 1 % (0-6); Hematocrit 44.7 % (37.0-53.0); Hemoglobin 13.9 g/dL (13.5-17.5); IMMATURE GRAN ABSOLUTE AUTO 0.08 K/mm3 (0.00-0.10); IMMATURE GRAN PERCENT AUTO 1 % (0-1); LYMPHOCYTES PERCENT AUTO 6 % (21-46); MONOCYTES ABSOLUTE AUTO 0.77 K/mm3 (0.16-1.47); MONOCYTES PERCENT AUTO 6 % (4-13); Mean Corpuscular HGB 29.1 pg (26.0-34.0); Mean Corpuscular HGB Conc 31.1 g/dL (31.5-36.5); Mean Corpuscular Volume 94 fL (80-100); Mean Platelet Volume 10.3 fL (9.1-12.4); NEUTROPHILS ABSOLUTE AUTO 10.59 K/mm3 (1.96-9.15); NEUTROPHILS PERCENT AUTO 85 % (41-73); Platelet Count 262 K/mm3 (150-400); RDW Coefficient Variation 13.7 % (11.7-14.2); RDW Standard Deviation 46.6 fL (35.1-46.3); Red Blood Cell Count 4.77 M/mm3 (4.30-5.90); White Blood Cell Count 12.42 K/mm3 (4.00-11.30)
[2023-01-07 15:38] LABS: Albumin, Blood 2.3 g/dL (3.4-5.0); Albumin/Globulin Ratio 0.7 (0.8-1.8); Bilirubin, Total 0.4 mg/dL (0.1-1.0); Bun/Creatinine Ratio 29.3 (12.0-20.0); Calcium, Blood 8.5 mg/dL (8.5-10.1); Creatinine, Blood 0.65 mg/dL (0.60-1.20); Globulin, Blood 3.3 g/dL (2.2-4.0); Potassium, Blood 3.8 mmol/L (3.5-5.5); Total Protein, Blood 5.6 g/dL (6.4-8.2)
[2023-01-07 18:46] VITALS: BP 124/79
== END 2023-01-07 19:48 | disposition home or self-care (01) ==
LOC: ER 12:30
PROVIDERS: Student in an Organized Health Care Education/Training Program
DX: K59.00 Constipation, unspecified (principal); Z79.899 Other long term (current) drug therapy; Z79.82 Long term (current) use of aspirin; J44.9 Chronic obstructive pulmonary disease, unspecified; I25.10 Atherosclerotic heart disease of native coronary artery without angina pectoris; G20 Parkinson's disease; I10 Essential (primary) hypertension; E78.00 Pure hypercholesterolemia, unspecified; E03.9 Hypothyroidism, unspecified; K21.9 Gastro-esophageal reflux disease without esophagitis; F17.200 Nicotine dependence, unspecified, uncomplicated
CPT/HCPCS: 74018; 74177; 80053; 83690; 85025; 99284-25; A9270; Q9967